=== PATIENT | female | born 1950 | race Two or more races ===

== ENCOUNTER 2024-08-01 14:12 | Emergency (ER) | payer OTHER ==
[~2024-08-01] VITALS: Ht 160 cm; Wt 74.8 kg
[2024-08-01 15:11] VITALS: BP 150/82; O2SAT 95
[2024-08-01] MEDS ORDERED: ATACAND32 MG PO (15:13)
[2024-08-01] MEDS ORDERED: ROSUVASTATIN CA20 MG PO (15:13)
[2024-08-01] MEDS ORDERED: AMLODIPINE-OLM1 EAC2 PO (15:13)
[2024-08-01 17:34] LABS: HEMATOCRIT 43.6 % (36.0-45.00); HEMOGLOBIN 14.8 g/dL (12.0-15.00); MEAN CELL VOLUME 88.4 fL (80.00-100.00); MEAN CORPUSCULAR HGB CONC 33.9 g/dl (32.0-36.0); PLATELET COUNT 171 K/uL (150-450); RED BLOOD COUNT 4.93 M/uL (4.00-6.00); RED CELL DISTRIBUTION WIDTH 13.6 % (11.5-14.5)
[2024-08-01 18:18] LABS: PH,URINE 5.5 (5.0-8.0); URINE APPEARANCE Cloudy; URINE BILIRRUBIN Small (NEGATIVE); URINE BLOOD Negative; URINE COLOR Dark Yellow; URINE GLUCOSE Negative (NEGATIVE); URINE KETONE 15 (NEGATIVE); URINE LEUKOCYTE Negative; URINE NITRATE Negative; URINE UROBILINOGEN 0.2 E.U./dl
[2024-08-01 18:24] LABS: URINE BACTERIA 190.9 uL (0.0-1933); URINE CAST 18.26 uL (0.0-1.40); URINE EPITHELIAL CELLS 56.3 uL (0.0-38.8); URINE RBC 9.7 uL (0.0-20.8); URINE WBC 34.5 uL (0.0-23.2)
[2024-08-01 18:49] LABS: URINE MUCUS MODERATE; URINE PROTEIN 100 (NEGATIVE)
[2024-08-01] MEDS ORDERED: ORPHENADRINE CITRATE 30 MG/ML AMPUL IM STA (18:53)
[2024-08-01] MEDS ORDERED: DEXAMETHASONE SODIUM PHOSPHATE 4 MG/ML VIAL IM STA (18:54)
[2024-08-01] MEDS ORDERED: ORPHENADRINE CITRATE 30 MG/ML AMPUL ONE (19:01)
[2024-08-01] MEDS ORDERED: DEXAMETHASONE SODIUM PHOSPHATE 4 MG/ML VIAL ONE (19:02)
== END 2024-08-01 20:38 | disposition home or self-care (01) ==
LOC: ER 14:15
DX: K52.89 Other specified noninfective gastroenteritis and colitis (principal); A90 Dengue fever [classical dengue]; J00 Acute nasopharyngitis [common cold]; Z20.822 Contact with and (suspected) exposure to COVID-19
CPT/HCPCS: 36415; 71046; 74177; 93005; 99284; Q9965

== ENCOUNTER 2024-08-02 12:01 | Outpatient (CLI) | payer OTHER ==
[~2024-08-02 12:01] MED LIST: AMLODIPINE-OLM1 EAC2 PO; ATACAND32 MG PO; ROSUVASTATIN CA20 MG PO
[2024-08-02 12:27] LABS: HEMATOCRIT 42.4 % (36.0-45.00); HEMOGLOBIN 14.6 g/dL (12.0-15.00); MEAN CELL VOLUME 87.3 fL (80.00-100.00); MEAN CORPUSCULAR HEMOGLOBIN 30.1 pg (27.00-32.0); MEAN CORPUSCULAR HGB CONC 34.5 g/dl (32.0-36.0); PLATELET COUNT 158 K/uL (150-450); RED BLOOD COUNT 4.86 M/uL (4.00-6.00); RED CELL DISTRIBUTION WIDTH 13.7 % (11.5-14.5)
== END 2024-08-02 12:04 | disposition home or self-care (01) ==
LOC: LAB 12:01
DX: A90 Dengue fever [classical dengue] (principal)